=== PATIENT | male | born 1975 | race Native Hawaiian/Other Pacific Islander ===

== ENCOUNTER 2016-03-15 00:04 | Emergency (ER) | payer BC ==
[~2016-03-15] VITALS: Ht 185.4 cm; Wt 95.3 kg
== END 2016-03-15 01:46 | disposition home or self-care (01) ==
LOC: ED 00:04
DX: J30.9 Allergic rhinitis, unspecified (principal); H10.13 Acute atopic conjunctivitis, bilateral
CPT/HCPCS: 99282